=== PATIENT | male | born 1970 | race Two or more races ===

== ENCOUNTER 2021-03-09 15:20 | Inpatient (IN) | payer OTHER ==
[2021-03-09] MEDS ORDERED: ACETAMINOPHEN 325 MG TABLET (FP) PO PRN ×2 (17:35)
[2021-03-09] MEDS ORDERED: IBUPROFEN 400 MG TABLET (FP) PO PRN (17:35)
[2021-03-09] MEDS ORDERED: MAGNESIUM HYDROX 2400MG/30ML ORAL SUSPENSION 30 ML CUP PO PRN (17:35)
[2021-03-09] MEDS ORDERED: MAGNESIUM CITRATE 300 ML BOTTLE PO PRN (17:35)
[2021-03-09] MEDS ORDERED: ONDANSETRON *ODT* 4 MG TABLET SL PRN (17:35)
[2021-03-09] MEDS ORDERED: NICOTINE POLACRILEX 2 MG GUM BUC PRN (17:35)
[2021-03-09] MEDS ORDERED: BISMUTH SUBSALICYLATE 524 MG/30 ML PO PRN (17:35)
[2021-03-09] MEDS ORDERED: MAG HYDROX/AL HYDROX/SIMETH 30 ML UNIT-DOSE CUP PO PRN (17:35)
[2021-03-09] MEDS ORDERED: NICOTINE 10 MG CARTRIDGE (INHALER) IH PRN (17:35)
[2021-03-09] MEDS ORDERED: MENTHOL/PHENOL 1 EACH UD MM PRN (17:35)
[2021-03-09 18:57] VITALS: BMI 38.5
[2021-03-09] MEDS: diazePAM 5 MG TABLET PO PRN (19:46)
[2021-03-09] MEDS ORDERED: cloNIDine HCL 0.1 MG TABLET PO ONE (20:09)
[2021-03-09] MEDS: METHOCARBAMOL 500 MG TABLET PO PRN (21:17)
[2021-03-09] MEDS: MELATONIN 5 MG TABLETS PO SCH (22:41)
[2021-03-09] MEDS: THIAMINE HCL 100 MG TABLET (FP) PO SCH (22:41)
[2021-03-09] MEDS: diazePAM 5 MG TABLET PO SCH (22:42)
[2021-03-10] MEDS: diazePAM 5 MG TABLET PO SCH ×4 (06:35→22:16)
[2021-03-10] MEDS: amLODIPine BESYLATE 10 MG TABLET (FP) PO SCH (10:30)
[2021-03-10] MEDS: PRENATAL VITAMINS W/ FOLIC ACID TABLET (FP) PO SCH (10:32)
[2021-03-10] MEDS: METHOCARBAMOL 500 MG TABLET PO PRN ×2 (10:32→21:19)
[2021-03-10 12:17] LABS: HEMOGLOBIN 16.2 GM/dL (11.7-16.9); MCH 33.1 pg (25.7-33.7); MCHC 34.4 g/dl (32.0-35.9); MEAN CELL VOLUME 96.2 fl (80-96); PLATELET COUNT 168 10^3/uL (134-434); RBC 4.89 M/mm3 (4.00-5.60); RDW 13.7 % (11.9-15.9); WHITE BLOOD COUNT 7.9 K/mm3 (4.0-10.0)
[2021-03-10 12:21] LABS: ALBUMIN 3.8 g/dl (3.4-5.0)
[2021-03-10 12:22] LABS: CALCIUM 8.8 mg/dL (8.5-10.1)
[2021-03-10 12:23] LABS: CREATININE 1.2 mg/dL (0.55-1.3)
[2021-03-10 12:25] LABS: BILIRUBIN,TOTAL 0.4 mg/dL (0.2-1); TOT PROT 7.3 g/dl (6.4-8.2)
[2021-03-10] MEDS ORDERED: cloNIDine HCL 0.1 MG TABLET PO PRN (14:21)
[2021-03-10] MEDS: diazePAM 5 MG TABLET PO PRN (21:19)
[2021-03-10] MEDS: MELATONIN 5 MG TABLETS PO SCH (22:15)
[2021-03-10] MEDS: THIAMINE HCL 100 MG TABLET (FP) PO SCH (22:15)
[2021-03-11] MEDS: METHOCARBAMOL 500 MG TABLET PO PRN (05:15)
[2021-03-11] MEDS: diazePAM 5 MG TABLET PO SCH ×3 (05:15→22:18)
[2021-03-11] MEDS: amLODIPine BESYLATE 10 MG TABLET (FP) PO SCH (10:09)
[2021-03-11] MEDS: PRENATAL VITAMINS W/ FOLIC ACID TABLET (FP) PO SCH (10:09)
[2021-03-11] MEDS: ALBUTEROL SO4 HFA INHALER IH PRN ×2 (10:11→22:41)
[2021-03-11] MEDS: diazePAM 5 MG TABLET PO PRN (10:11)
[2021-03-11] MEDS ORDERED: cloNIDine HCL 0.1 MG TABLET PO ONE ×2 (14:05→21:44)
[2021-03-11] MEDS: THIAMINE HCL 100 MG TABLET (FP) PO SCH (22:18)
[2021-03-11] MEDS: MELATONIN 5 MG TABLETS PO SCH (22:18)
[2021-03-12] MEDS: diazePAM 5 MG TABLET PO SCH ×2 (06:33→17:41)
[2021-03-12] MEDS ORDERED: cloNIDine HCL 0.1 MG TABLET PO ONE (07:42)
[2021-03-12] MEDS: ALBUTEROL SO4 HFA INHALER IH PRN ×2 (07:57→11:53)
[2021-03-12] MEDS: diazePAM 5 MG TABLET PO PRN (11:46)
[2021-03-12] MEDS: amLODIPine BESYLATE 10 MG TABLET (FP) PO SCH (11:46)
[2021-03-12] MEDS: PRENATAL VITAMINS W/ FOLIC ACID TABLET (FP) PO SCH (11:48)
[2021-03-12] MEDS: HYDROCHLOROTHIAZIDE 25 MG TABLET (FP) PO SCH (11:49)
[2021-03-12] MEDS ORDERED: HYDROCHLOROTHIAZIDE 25 MG TABLET (FP) PO ONE (17:29)
[2021-03-12] MEDS ORDERED: METOPROLOL TARTRATE 25 MG TABLET (FP) PO ONE ×2 (21:18→23:36)
[2021-03-12] MEDS: MELATONIN 5 MG TABLETS PO SCH (22:38)
[2021-03-12] MEDS: THIAMINE HCL 100 MG TABLET (FP) PO SCH (22:38)
[2021-03-12] MEDS ORDERED: METOPROLOL TARTRATE 50 MG TABLET (FP) PO ONE (23:45)
[2021-03-13] MEDS: METHOCARBAMOL 500 MG TABLET PO PRN (04:24)
[2021-03-13] MEDS ORDERED: diazePAM 5 MG TABLET PO ONE (06:00)
[2021-03-13 09:23] VITALS: BP 141/80; PULSE 80; TEMP 96.8
[2021-03-13] MEDS: amLODIPine BESYLATE 10 MG TABLET (FP) PO SCH (10:08)
[2021-03-13] MEDS: HYDROCHLOROTHIAZIDE 25 MG TABLET (FP) PO SCH (10:08)
[2021-03-13] MEDS: PRENATAL VITAMINS W/ FOLIC ACID TABLET (FP) PO SCH (10:09)
== END 2021-03-13 16:52 | disposition home or self-care (01) | DRG 774 ==
LOC: YASAS 15:20 → Y3N 18:35
PROVIDERS: ADMIT Allergy & Immunology; ATTEND Allergy & Immunology
PROC: HZ2ZZZZ Detoxification Services for Substance Abuse Treatment (ICD-10-PCS; principal; 2021-03-09)
DX: F10.230 Alcohol dependence with withdrawal, uncomplicated (principal); F14.20 Cocaine dependence, uncomplicated; F12.10 Cannabis abuse, uncomplicated; F17.210 Nicotine dependence, cigarettes, uncomplicated; I10 Essential (primary) hypertension; R42 Dizziness and giddiness; J45.20 Mild intermittent asthma, uncomplicated; R00.0 Tachycardia, unspecified; S80.211A Abrasion, right knee, initial encounter; W18.39XA Other fall on same level, initial encounter; Y93.9 Activity, unspecified; Y92.239 Unspecified place in hospital as the place of occurrence of the external cause; Z88.0 Allergy status to penicillin
CPT/HCPCS: 36415; 80053; 85027; 86780; 93005; 93010; C9803; J0735; Q0162; U0003; U0005

== ENCOUNTER 2021-03-13 11:35 | Emergency (ER) | payer OTHER ==
[2021-03-13 11:49] VITALS: BP 151/98; PULSE 80; TEMP 98.3; BMI 32.1
[2021-03-13 16:16] LABS: EOS % 4.3 % (0-4.5); HEMATOCRIT 46.3 % (35.4-49); HEMOGLOBIN 15.8 GM/dL (11.7-16.9); LYMPH % 24.9 % (8-40); MCH 32.4 pg (25.7-33.7); MCHC 34.1 g/dl (32.0-35.9); MEAN PLT VOLUME 11.3 fl (7.5-11.1); MONO % 11.7 % (3.8-10.2); NEUT % 58.1 % (42.8-82.8); PLATELET COUNT 139 10^3/uL (134-434); RBC 4.87 M/mm3 (4.00-5.60); RDW 13.4 % (11.9-15.9); WHITE BLOOD COUNT 6.1 K/mm3 (4.0-10.0)
[2021-03-13 16:37] LABS: CALCIUM 9.6 mg/dL (8.5-10.1)
[2021-03-13 16:38] LABS: ALBUMIN 3.6 g/dl (3.4-5.0); BLOOD UREA NITROGEN 14.7 mg/dL (7-18)
[2021-03-13 16:42] LABS: BILIRUBIN,TOTAL 0.3 mg/dL (0.2-1)
[2021-03-13 16:43] LABS: TOT PROT 7.3 g/dl (6.4-8.2)
== END 2021-03-13 18:43 | disposition home or self-care (01) ==
LOC: JER 11:35
DX: S09.90XA Unspecified injury of head, initial encounter (principal); W19.XXXA Unspecified fall, initial encounter; Y92.9 Unspecified place or not applicable
CPT/HCPCS: 36415; 70450-TC; 80053; 82962; 85025; 93005; 93010; 99284-25